=== PATIENT | female | born 1995 | race Caucasian/White ===

== ENCOUNTER → 2018-01-12 14:20 | Outpatient (CLI) | payer MEDICAID, SELFPAY ==
[2018-01-12 16:21] LABS: HIV - WCH Non-Reactive (Nonreactive)
[2018-01-14 02:54] LABS: Rapid Plasmin Reagin (RPR) NONREACTIVE (NONREACTIVE)
[2018-01-14 20:07] LABS: HCV Quant. RNA PCR HCV Not Detected IU/mL (.)
[2018-01-15 08:33] LABS: HSV 1 IgG < 0.91 index (0.00-0.90); HSV 2 IgG < 0.91 index (0.00-0.90)
== END ==
PROVIDERS: Visit Provider Nurse Practitioner Women's Health
DX: Z11.3 Encounter for screening for infections with a predominantly sexual mode of transmission (principal)
CPT/HCPCS: 36415; 86592; 86695; 86696; 86703; 87491; 87522; 87591; 88175; G0145

== ENCOUNTER → 2018-01-12 15:00 | Outpatient (CLI) | payer MEDICAID, SELFPAY ==
[2018-01-12 16:58] LABS: Chlamydia Trachomatis by PCR Negative (Negative); Neisserai gonorrhoeae by PCR Negative (Negative); Probe Check PASS; Sample Adequacy Control PASS; Specimen Processing Control PASS
[2018-01-14 13:25] LABS: HPV Reflexed? NOT INDICATED
== END ==
PROVIDERS: Visit Provider Nurse Practitioner Women's Health
DX: Z12.4 Encounter for screening for malignant neoplasm of cervix (principal); Z11.3 Encounter for screening for infections with a predominantly sexual mode of transmission
CPT/HCPCS: 87491; 87591; 88175; G0145

== ENCOUNTER → 2019-02-20 | Outpatient (CLI) | payer MEDICAID, SELFPAY ==
[2019-02-20 14:32] VITALS: BMI 20.9
[2019-02-20 21:42] LABS: Chlamydia Trachomatis by PCR Negative (Negative); Neisserai gonorrhoeae by PCR Negative (Negative); Probe Check PASS; Sample Adequacy Control PASS; Specimen Processing Control PASS
== END | disposition home or self-care (01) ==
PROVIDERS: Family Provider Internal Medicine; PCP Internal Medicine; Referring Provider Nurse Practitioner Women's Health; Visit Provider Nurse Practitioner Women's Health
DX: Z11.3 Encounter for screening for infections with a predominantly sexual mode of transmission (principal)
CPT/HCPCS: 87491; 87591

== ENCOUNTER → 2022-04-17 | Outpatient (CLI) | payer MEDICAID, SELFPAY ==
[2022-04-24 17:17] LABS: HPV Reflexed? NOT INDICATED
== END | disposition home or self-care (01) ==
LOC: LABSPEC 17:41
PROVIDERS: PCP Internal Medicine; Visit Provider Obstetrics & Gynecology
DX: Z12.4 Encounter for screening for malignant neoplasm of cervix (principal)
CPT/HCPCS: 88175; G0145